=== PATIENT | female | born 1995 | race Caucasian/White ===

== ENCOUNTER 2017-04-01 21:26 | Emergency (ER) | payer OTHER ==
[~2017-04-01] VITALS: Ht 165.1 cm; Wt 116.6 kg
[~2017-04-01 21:26] MED LIST: ALBU0.0939 IH
[2017-04-01 21:46] VITALS: BP 132/65
[2017-04-01] MEDS ORDERED: ACETAMINOPHEN EXTRA STRENGTH 500 MG TAB ONE (22:00)
[2017-04-01] MEDS ORDERED: HYDROcodone/APAP 5/325 MG 1 TAB TAB PO ONE (22:45)
[2017-04-01] MEDS ORDERED: DICYCLOMINE 20 MG/2 ML VIAL IM ONE (22:45)
[2017-04-01 23:27] LABS: APPEARANCE,URINE SL CLOUDY (CLEAR); BILIRUBIN,URINE 1+ (NEGATIVE); BLOOD, URINE NEGATIVE (NEGATIVE); COLOR,URINE YELLOW (YELLOW); LEUKOCYTE ESTERASE ,URINE NEGATIVE (NEGATIVE); NITRITE, URINE NEGATIVE (NEGATIVE); PROTEIN,URINE NEGATIVE (NEGATIVE); UGLUCOSE NEGATIVE (NEGATIVE)
[2017-04-01 23:48] LABS: BACTERIA,URINE FEW /HPF (None Seen); ICTOTEST NEGATIVE (NEGATIVE); MUCUS,URINE 3+ /LPF (None Seen); RBC,URINE 0-5 (RARE) /HPF (0-5); SQUAMOUS EPITHELIAL CELL,UR 0-3 (FEW) /LPF (0-3 (FEW)); WBC,URINE 0-5 (RARE) /HPF (0-5)
[2017-04-02 00:06] VITALS: BP 131/76
== END 2017-04-02 00:08 | disposition home or self-care (01) ==
LOC: MED 21:26
DX: R19.7 Diarrhea, unspecified (principal); R11.10 Vomiting, unspecified; M79.1 Myalgia; R42 Dizziness and giddiness; J45.909 Unspecified asthma, uncomplicated; R50.9 Fever, unspecified; R53.1 Weakness; Z88.6 Allergy status to analgesic agent; Z79.52 Long term (current) use of systemic steroids; Z86.73 Personal history of transient ischemic attack (TIA), and cerebral infarction without residual deficits
CPT/HCPCS: 81001; 81025; 96372; 99283; J0500

== ENCOUNTER 2017-07-19 14:03 | Emergency (ER) | payer OTHER ==
[~2017-07-19] VITALS: Ht 165.1 cm; Wt 121.7 kg
[2017-07-19 14:35] VITALS: BP 106/60
--- NOTE | 2017-07-19 14:45 | NUR ---
PATIENT IS A 21 YO FEMALE BIB SELF FOR SORE THROAT AND COUGH, AWAKE AND ALERT ABLE TO TALK NO FEVER STATES HER TONSILS ARE SWOLLEN.
[2017-07-19] MEDS: DEXAMETHASONE 10 MG/ML VIAL IM ONE (15:24)
[2017-07-19] MEDS: ACETAMINOPHEN 325 MG TAB PO ONE (15:24)
[2017-07-19 15:54] VITALS: BP 106/60
--- NOTE | 2017-07-19 15:55 | NUR ---
Patient discharged with v/s stable. Written and verbal after care instructions given and explained. Patient alert, oriented and verbalized understanding of instructions. Ambulatory with steady gait. All questions addressed prior to discharge. ID band removed. Patient advised to follow up with PMD. Rx of TYLENOL, NASAL SPRAY AND COUGH SYRUP given. Patient educated on indication of medication including possible reaction and side effects. Opportunity to ask questions provided and answered.
== END 2017-07-19 15:55 | disposition home or self-care (01) ==
LOC: MED 14:03
DX: J06.9 Acute upper respiratory infection, unspecified (principal); J45.909 Unspecified asthma, uncomplicated; Z88.6 Allergy status to analgesic agent
CPT/HCPCS: 87081; 96372; 99283; J1100

== ENCOUNTER 2018-07-25 21:19 | Emergency (ER) | payer OTHER ==
[~2018-07-25] VITALS: Ht 165.1 cm; Wt 129.3 kg
[2018-07-25 21:36] VITALS: BP 153/68
--- NOTE | 2018-07-25 22:50 | NUR ---
PT BIB SELF C/O LOWER BACK PAIN THAT RADIATES TO RT HIP AND DOWN RT LEG. PT IS AMBULATORY. PT DENIES TRAUMA TO AREA, NO REDNESS, BRUISING OR OPEN SKIN NOTED. PT HAS HX OF CHRONIC LOWER BACK PAIN AND SCOLIOSIS. PT SITTING IN BED, APPEARS TO BE IN NO ACUTE DISTRESS AT THIS TIME.
[2018-07-26] MEDS ORDERED: DIAZEPAM 5 MG TAB PO ONE (00:10)
[2018-07-26] MEDS ORDERED: KETOROLAC 60 MG/2 ML VIAL IM ONE (00:10)
[2018-07-26] MEDS ORDERED: ACETAMINOPHEN EXTRA STRENGTH 500 MG TAB PO ONE (00:25)
[2018-07-26] MEDS ORDERED: MORPHINE SULFATE 4 MG/ML SYR IM ONE (00:25)
[2018-07-26] MEDS ORDERED: MORPHINE SULFATE 2 MG/ML SYR ONE (00:58)
[2018-07-26 01:14] VITALS: BP 114/53
--- NOTE | 2018-07-26 01:14 | NUR ---
Patient discharged with v/s stable. Written and verbal after care instructions given and explained. Patient alert, oriented and verbalized understanding of instructions. Ambulatory with steady gait. All questions addressed prior to discharge. ID band removed. Patient advised to follow up with PMD. Rx of PREDNISONE, TYLENOL, VALIUM given. Patient educated on indication of medication including possible reaction and side effects. Opportunity to ask questions provided and answered.
== END 2018-07-26 01:14 | disposition home or self-care (01) ==
LOC: MED 21:19
DX: M54.41 Lumbago with sciatica, right side (principal); J45.909 Unspecified asthma, uncomplicated; Z88.6 Allergy status to analgesic agent; Z79.899 Other long term (current) drug therapy
CPT/HCPCS: 36415; 81002; 81025; 87804; 96372; 99283; J1885; J2270

== ENCOUNTER 2019-01-08 15:26 | Emergency (ER) | payer OTHER ==
[~2019-01-08] VITALS: Ht 165.1 cm; Wt 122.5 kg
--- NOTE | 2019-01-08 15:29 | NUR ---
PT AMBULATED TO BED 8
[2019-01-08 15:30] VITALS: BP 149/85
--- NOTE | 2019-01-08 15:53 | NUR ---
DR COSTA AT BEDSIDE FOR PT EVALUATION
--- NOTE | 2019-01-08 15:59 | NUR ---
23 Y FEMALE PT BIB FRIEND C/O ABSCESS UNDER R ARMPIT WORSENING OVER 3 DAYS. HAD BOYFRIEND POP IT THIS MORNING AND IT HAS BECOME RED AND SWOLLEN SINCE. 10/10 SHARP PAIN. VSS AT THIS TIME. PT ALERT AND ORIENTED X 4. BED SI DOWN, LOCKED, BED RAIL X 1, ERMD TO SEE PT. PMH- ASTHMA
--- NOTE | 2019-01-08 17:26 | NUR ---
DR COSTA RE-EVALUATING PT
[2019-01-08] MEDS ORDERED: HYDROcodone/APAP 5/325 MG 1 TAB TAB PO ONE (17:30)
[2019-01-08 17:39] VITALS: BP 135/72
--- NOTE | 2019-01-08 17:40 | NUR ---
Patient discharged with v/s stable. Written and verbal after care instructions given and explained. Patient alert, oriented and verbalized understanding of instructions. Ambulatory with steady gait. All questions addressed prior to discharge. ID band removed. Patient advised to follow up with PMD. Rx of NORCO AND BACTRIM given. Patient educated on indication of medication including possible reaction and side effects. Opportunity to ask questions provided and answered.
== END 2019-01-08 17:40 | disposition home or self-care (01) ==
LOC: MED 15:26
DX: L02.413 Cutaneous abscess of right upper limb (principal); J45.909 Unspecified asthma, uncomplicated; Z79.899 Other long term (current) drug therapy; Z88.8 Allergy status to other drugs, medicaments and biological substances
CPT/HCPCS: 99283

== ENCOUNTER 2019-01-21 21:15 | Emergency (ER) | payer OTHER ==
[~2019-01-21] VITALS: Ht 165.1 cm; Wt 131.5 kg
[2019-01-21 21:17] VITALS: BP 125/65
--- NOTE | 2019-01-21 21:17 | NUR ---
PT TAKEN TO BED 8
--- NOTE | 2019-01-21 21:17 | NUR ---
23 Y/O FEMALE PRESENTS TO ED WITH WHEEL CHAIR ASSISTANCE FROM [employer]. SEVERE SOB/DYSPNEA. GASPING FOR AIR AND COUGHING. WHEEZING HEARD THROUGHOUT IN BILAT UPPER/LOWER LOBES. ALERT TO NAME, PLACE, TIME, EVENT. 02SAT 87% @RA. RR 32. HR 102. ASSISTED INTO BED WITH HOB ELEVATED IN HIGH POSITION. X2 SIDE RAILS UP. RESPIRATORY CALLED. ER MD AWARE. CONTINUE TO MONITOR.
[2019-01-21] MEDS ORDERED: predniSONE 20 MG TAB PO ONE (21:20)
[2019-01-21] MEDS ORDERED: ALBUTEROL SULFATE/IPRATROPIU 3 ML SOL IH ONE ×2 (21:20→21:50)
[2019-01-21] MEDS ORDERED: ALBUTEROL 0.083% 2.5 MG/3 ML NEBU INH ONE ×2 (21:20→21:50)
--- NOTE | 2019-01-21 21:22 | NUR ---
Respiratory Therapist at bedside for respiratory intervention.
--- NOTE | 2019-01-21 21:32 | NUR ---
PT IN BED RESTING WITH EYES OPEN. WHEEZING PRESENT BUT DIMINISHED. RR 24. RESPIRATORY AT BEDSIDE. PT NO LONGER IN RESPIRATORY DISTRESS. O2SAT 100%. CONTINUE TO MONITOR.
[2019-01-21] MEDS ORDERED: MORPHINE SULFATE 4 MG/ML SYR IM ONE (22:05)
--- NOTE | 2019-01-21 22:56 | NUR ---
Dr. Brunson evaluating patient at bedside.
[2019-01-21 23:13] VITALS: BP 131/89
--- NOTE | 2019-01-21 23:13 | NUR ---
DISCHARGE PAPERS GIVEN TO PT. 10/02 PAIN AND TOLLERABLE. NO RESPIRATORY DISTRESS. BILAT UPPER LOBES CLEAR. 02SAT 99% @RA. RX OF PREDNISONE, ALBUTEROL, AND NORCO GIVEN. SIDE EFFECTS EXPLAINED. INSTRUCTED TO F/U WITH PCP AND WHEN TO RETURN TO ER. PT VERBALLIZED UNDERSTANDING OF DC INSTUCTIONS. ALL QUESTIONS ANSWERED.
== END 2019-01-21 23:13 | disposition home or self-care (01) ==
LOC: MED 21:15
DX: J45.901 Unspecified asthma with (acute) exacerbation (principal); R07.89 Other chest pain; Z88.8 Allergy status to other drugs, medicaments and biological substances; Z79.899 Other long term (current) drug therapy
CPT/HCPCS: 94640; 96372; 99284; J2270; J7512; J7613; J7620

== ENCOUNTER 2020-07-03 14:37 | Emergency (ER) | payer OTHER ==
[~2020-07-03] VITALS: Ht 165.1 cm; Wt 125.7 kg
[2020-07-03 14:39] VITALS: BP 122/49
[2020-07-03] MEDS ORDERED: HYDROcodone/APAP 5/325 MG 1 TAB TAB ONE (15:21)
[2020-07-03] MEDS: KETOROLAC 30 MG/ML VIAL IM ONE (15:27)
[2020-07-03] MEDS: HYDROcodone/APAP 5/325 MG 1 TAB TAB PO ONE (15:33)
[2020-07-03 15:38] VITALS: BP 122/49
== END 2020-07-03 15:39 | disposition home or self-care (01) ==
LOC: MED 14:37
DX: T81.30XA Disruption of wound, unspecified, initial encounter (principal); I51.89 Other ill-defined heart diseases; J45.909 Unspecified asthma, uncomplicated; Z48.00 Encounter for change or removal of nonsurgical wound dressing; Z88.6 Allergy status to analgesic agent; Z98.890 Other specified postprocedural states; Z79.899 Other long term (current) drug therapy
CPT/HCPCS: 96372; 99283; J1885

== ENCOUNTER 2022-05-26 13:09 | Emergency (ER) | payer OTHER ==
[~2022-05-26] VITALS: Ht 165.1 cm; Wt 132.4 kg
[2022-05-26 13:32] VITALS: BP 137/93
--- NOTE | 2022-05-26 13:32 | NUR ---
amari and flu swabbed
--- NOTE | 2022-05-26 13:32 | NUR ---
26 y/o female, c/o fever, cough, body aches, and mucous congestion for 3 days. states she tested negative at home for covid, son is sick at home with same s/s. 06/01 daley, body pain pmh: asthma allergy: ibuprofen (hives) med: denies
[2022-05-26] MEDS ORDERED: ALBU0.0912 IH (13:57)
[2022-05-26] MEDS ORDERED: ALBU2.5V IH (13:57)
[2022-05-26] MEDS ORDERED: PROM118S5 PO (13:57)
[2022-05-26] MEDS ORDERED: PRED20TA5 PO (13:57)
[2022-05-26 14:40] VITALS: BP 137/93
--- NOTE | 2022-05-26 14:40 | NUR ---
left without dx paperwork
== END 2022-05-26 14:40 | disposition home or self-care (01) ==
LOC: MED 13:09
DX: B34.9 Viral infection, unspecified (principal); Z20.822 Contact with and (suspected) exposure to COVID-19; J45.909 Unspecified asthma, uncomplicated; Z79.899 Other long term (current) drug therapy; Z88.6 Allergy status to analgesic agent
CPT/HCPCS: 99283

== ENCOUNTER 2023-12-24 13:20 | Emergency (ER) | payer OTHER ==
[~2023-12-24] VITALS: Ht 165.1 cm; Wt 135.7 kg
[~2023-12-24 13:20] MED LIST changes: +ALBU0.0912 IH; +ALBU2.5V IH; +PRED20TA5 PO; +PROM118S5 PO
[2023-12-24 13:29] VITALS: BP 131/54; PULSE 66; RESP 18; TEMP 98.2; O2SAT 97
[2023-12-24] MEDS: HYDROcodone/APAP 7.5/325 MG 1 TAB PO ONE (14:10)
[2023-12-24] MEDS: LIDOCAINE 5% 1 EA PATCH TP ONE (14:11)
[2023-12-24] MEDS ORDERED: ACET-8905 PO (15:06)
[2023-12-24] MEDS ORDERED: METH4TAB1 PO (15:06)
[2023-12-24] MEDS ORDERED: LID5T TP (15:06)
[2023-12-24 15:16] VITALS: BP 116/66; PULSE 68; RESP 18; TEMP 98.2; O2SAT 97
== END 2023-12-24 15:16 | disposition home or self-care (01) ==
LOC: MED 13:20
DX: S39.012A Strain of muscle, fascia and tendon of lower back, initial encounter (principal); J45.909 Unspecified asthma, uncomplicated; R03.0 Elevated blood-pressure reading, without diagnosis of hypertension; M54.17 Radiculopathy, lumbosacral region; Z79.899 Other long term (current) drug therapy; Z88.8 Allergy status to other drugs, medicaments and biological substances; X58.XXXA Exposure to other specified factors, initial encounter; Y93.89 Activity, other specified; Y92.89 Other specified places as the place of occurrence of the external cause; Y99.8 Other external cause status
CPT/HCPCS: 81002; 81025; 99283

== ENCOUNTER 2024-06-10 12:09 | Emergency (ER) | payer OTHER ==
[~2024-06-10] VITALS: Ht 165.1 cm; Wt 147.4 kg
[~2024-06-10 12:09] MED LIST changes: +ACET-8905 PO; +LID5T TP; +METH4TAB1 PO
[2024-06-10 12:48] VITALS: BP 145/95; PULSE 78; RESP 18; TEMP 98; O2SAT 99
[2024-06-10] MEDS ORDERED: CEPH-588 PO ×2 (13:21→18:37)
[2024-06-10] MEDS ORDERED: ACET500T99 PO ×2 (13:21→18:37)
[2024-06-10] MEDS: ACETAMINOPHEN EXTRA STRENGTH 500 MG TAB PO ONE (13:45)
[2024-06-10 14:06] VITALS: BP 143/85; PULSE 88; RESP 16; TEMP 98; O2SAT 99
== END 2024-06-10 14:06 | disposition home or self-care (01) ==
LOC: MED 12:09
DX: S50.861A Insect bite (nonvenomous) of right forearm, initial encounter (principal); L08.89 Other specified local infections of the skin and subcutaneous tissue; L03.113 Cellulitis of right upper limb; J45.909 Unspecified asthma, uncomplicated; Z79.899 Other long term (current) drug therapy; Z88.6 Allergy status to analgesic agent; W57.XXXA Bitten or stung by nonvenomous insect and other nonvenomous arthropods, initial encounter; Y92.89 Other specified places as the place of occurrence of the external cause; Y93.89 Activity, other specified; Y99.8 Other external cause status
CPT/HCPCS: 99283